=== PATIENT | female | born 1935 | race Caucasian/White ===

== ENCOUNTER 2020-01-24 13:11 | Outpatient (CLI) | payer MEDICARE, SELFPAY ==
--- NOTE | ~2020-01-24 | XR_ITS ---
EXAMINATION: XR lumbar spine 2-3V DATE: 01/24/2020 13:52 INDICATION: Lumbar spine fusion. TECHNIQUE: 3 views of lumbar spine were obtained. COMPARISON: Lumbar spine radiographs 06/26/2019, MRI 607/19 FINDINGS: There is 8 mm anterolisthesis of L4 on L5. Vertebral body heights are normal. There are zohreh nges of posterior fusion procedure at L4-L5 with pedicle screws. There is mildly decreased disc heigh t at L4-L5 and L5-S1. There are endplate osteophytes at all levels. There is severe facet joint osteo arthritis in lower lumbar spine. IMPRESSION: 1. Moderate lumbar spondylosis. 2. Posterior fusion procedure at L4-L5. Reviewed, dictated and finalized at location A.
== END 2020-01-24 13:12 | disposition home or self-care (01) ==
LOC: ANHIMG 13:19
PROVIDERS: PCP Family Medicine; Visit Provider Neurological Surgery
DX: Z09 Encounter for follow-up examination after completed treatment for conditions other than malignant neoplasm (principal); Z98.1 Arthrodesis status; M47.896 Other spondylosis, lumbar region
CPT/HCPCS: 72100

== ENCOUNTER → 2020-06-08 08:57 | Outpatient (CLI) | payer MEDICARE, SELFPAY ==
--- NOTE | ~2020-06-08 | XR_ITS ---
EXAMINATION: XR lumbar spine 2-3V EXAM DATE: 06/08/2020 09:17 INDICATION: Postoperative follow-up, surgery 06/02. TECHNIQUE: Lumber spine frontal, lateral, lateral L5-S1 projections for interpretation. Comparison is made to prior examination from 01/24/2020. FINDINGS: L4-5 lumbar fusion posteriorly in the grade 1 anterolisthesis position unchanged. Probable L4 laminectomies. There is moderate disc disease L4-5 and L5-S1, mild at the upper lumbar levels. Sa bishop, sacroiliac joints, sacral arcuate lines are intact. Paraspinal soft tissue is unremarkable. Ove rall moderate lumbar facet arthropathy. Difficult appreciate any significant change compared to prior study. IMPRESSION: 1. L4-5 posterior fusion. 2. Moderate spondylosis. Reviewed, dictated and finalized at location A.
== END ==
PROVIDERS: PCP Neurological Surgery; Visit Provider Neurological Surgery
DX: Z09 Encounter for follow-up examination after completed treatment for conditions other than malignant neoplasm (principal); Z98.1 Arthrodesis status; M47.816 Spondylosis without myelopathy or radiculopathy, lumbar region
CPT/HCPCS: 72100

== ENCOUNTER 2021-05-29 12:29 | Outpatient (CLI) | payer MEDICARE, SELFPAY ==
--- NOTE | ~2021-05-29 | XR_ITS ---
EXAMINATION: XR lumbar spine 2-3V DATE: 05/29/2021 13:10 INDICATION: Lumbar spine fusion. TECHNIQUE: 3 views of lumbar spine were obtained. COMPARISON: Lumbar spine radiographs 06/08/2020, MRI 01/19/2019 FINDINGS: There is 3 mm retrolisthesis of L3 on L4 and 9 mm anterolisthesis of L4 on L5. There are ch anges of posterior fusion procedure at L4-L5 with pedicle screws. Vertebral body heights are normal. There is mildly decreased disc height at L3-L4 and L4-L5 and moderately decreased disc height at L5-S 1. There is severe facet joint osteoarthritis bilaterally from L3-L4 through L5-S1. IMPRESSION: 1. Moderate lumbar spondylosis. 2. Posterior fusion procedure at L4-L5. Reviewed, dictated and finalized at location A.
== END 2021-05-29 12:30 | disposition home or self-care (01) ==
LOC: ANHIMG 12:38
PROVIDERS: PCP Family Medicine; Visit Provider Neurological Surgery
DX: Z09 Encounter for follow-up examination after completed treatment for conditions other than malignant neoplasm (principal); M47.896 Other spondylosis, lumbar region; Z98.1 Arthrodesis status
CPT/HCPCS: 72100

== ENCOUNTER 2021-12-12 07:29 | Outpatient (CLI) | payer MEDICARE, SELFPAY ==
--- NOTE | ~2021-12-12 | MR_ITS ---
EXAMINATION: MR lumbar spine wo con DATE: 12/12/2021 08:48 INDICATION: Other intervertebral disc degeneration, lumbar region. Low back pain. Right leg and butto ck numbness. TECHNIQUE: Magnetic resonance imaging (MRI) of the lumbar spine was performed without intravenous con trast. Sequences included sagittal T2-weighted FSE, sagittal T2-weighted FS FSE, sagittal T1-weighted FSE, and axial T2-weighted FSE. COMPARISON: Lumbar spine MRI 01/19/2019 FINDINGS: There is 3 mm anterolisthesis of L3 on L4 and 9 mm anterolisthesis of L4 on L5. Vertebral b marisol heights are normal. There is moderately decreased disc height at L4-L5 and mildly decreased disc height at L5-S1. There are changes of posterior fusion procedure at L4-L5 with pedicle screws. The di stal spinal cord signal intensity is normal. The conus medullaris is at T12-L1. The following disc le vels are specifically discussed: L1-L2: The disc is bulging. There is mild bilateral facet joint osteoarthritis. There is mild right a nd moderate left neural foraminal stenosis. There is mild central canal stenosis. L2-L3: The disc is bulging and has an annular fissure. There is mild bilateral facet joint osteoarthr itis. There is moderate bilateral neural foraminal stenosis. There is mild central canal stenosis. L3-L4: The disc is bulging and has an annular fissure. There is severe bilateral facet joint osteoart hritis. There is hypertrophy of the ligamentum flavum. There is moderate right and severe left neural foraminal stenosis. There is severe central canal stenosis. L4-L5: The disc is bulging and has an annular fissure. There is ankylosis of the facet joints with mo derate hypertrophy. There is moderate bilateral neural foraminal stenosis. There is mild central lakisha l stenosis. There is posterior decompression. L5-S1: The disc is bulging. There is severe bilateral facet joint osteoarthritis. There is moderate b ilateral neural foraminal stenosis. There is mild central canal stenosis. IMPRESSION: 1. Severe lumbar spondylosis with worsening at L3-L4. 2. Posterior fusion procedure at L4-L5. Reviewed, dictated and finalized at location B.
--- NOTE | ~2021-12-12 | MR_ITS ---
EXAMINATION: MR thoracic spine wo con DATE: 12/12/2021 08:48 INDICATION: Other intervertebral disc degeneration. Back pain. Right buttock and leg numbness. TECHNIQUE: Magnetic resonance imaging (MRI) of the thoracic spine was performed without intravenous c ontrast. Sagittal localizer T1-weighted FSE of the cervical spine was obtained. Thoracic spine sequen eric included sagittal T2-weighted FSE, sagittal T1-weighted FSE, sagittal T2-weighted FS FSE, and axi al T2-weighted FSE. COMPARISON: None FINDINGS: Bone alignment is normal. There is a hemangioma in T10 vertebral body. There is mild chroni c anterior wedging of T6 vertebral body. There are Schmorl's nodes from T6-T7 through T11-T12. There is mildly decreased disc height at T4-T5, moderately decreased disc height at T5-T6 and T6-T7, and mi ldly decreased disc height from T7-T8 through T11-T12. At T6-T7, the disc is bulging with mild centra l canal stenosis and ventral indentation of spinal cord. At T7-T8, there is a central extrusion with mild central canal stenosis and ventral indentation of the spinal cord. At T9-T10, there is a left ce ntral extrusion with mild central canal stenosis. At T10-T11, the disc is bulging with mild central c anal stenosis. At T11-T12, there is a central extrusion with mild central canal stenosis. There is mu ltilevel mild to moderate facet joint osteoarthritis. On the right, there is mild neural foraminal st enosis at T3-T4 and T4-T5. On the left, there is mild neural foraminal stenosis at T3-T4. There is pu nctate increased T2-weighted signal intensity in the spinal cord on the right at T7-T8. IMPRESSION: 1. Punctate abnormal signal in the spinal cord at T7-T8, which may be myelomalacia or artifact. 2. Moderate thoracic spondylosis. Reviewed, dictated and finalized at location B. IMPRESSION: 1. Punctate abnormal signal in the spinal cord at T7-T8, which may be myelomala narinder or artifact. 2. Moderate thoracic spondylosis.
== END 2021-12-12 07:30 | disposition home or self-care (01) ==
LOC: ANHIMG 07:36
PROVIDERS: PCP Family Medicine; Visit Provider Physician Assistant Medical
DX: M51.36 Other intervertebral disc degeneration, lumbar region (principal); Z98.890 Other specified postprocedural states; Z87.39 Personal history of other diseases of the musculoskeletal system and connective tissue; G60.9 Hereditary and idiopathic neuropathy, unspecified; M47.894 Other spondylosis, thoracic region; M47.896 Other spondylosis, lumbar region; Z98.1 Arthrodesis status
CPT/HCPCS: 72146; 72148

== ENCOUNTER 2022-06-25 00:06 | Day surgery (SDC) | payer MEDICARE, SELFPAY ==
[2022-05-05 13:49] VITALS: BMI 37.0
[2022-06-16 15:08] VITALS: BMI 37.0
[2022-06-25 09:15] VITALS: BP 131/56; PULSE 75; RESP 20; TEMP 37; O2SAT 100; BMI 35.1
[2022-06-25] MEDS: LACTATED RINGERS 1,000 ML 150 ML IV CONT (09:43)
--- NOTE | 2022-06-25 09:45 | WPDANESEPPF ---
Anes - Initial Pre Proc Eval Procedure: Operation Date: 06/25/22 10:30 Proposed Procedures p Screening Colonoscopy - Aneudy Sim MD Date/Time: 06/25/22 09:45 Surgeon: Aneudy Sim MD Pre Op Diagnosis: hx of colon polyps Patient Data Age: 86 Gender: F Height: 1.52 m Weight: 81.5 kg Last Vital Signs Temp 37.0 C 06/25/22 09:15 Pulse 75 06/25/22 09:15 Resp 20 06/25/22 09:15 BP 131/56 L 06/25/22 09:15 Pulse Ox 100 06/25/22 09:15 O2 Del Method Room Air 06/25/22 09:15 Allergies Allergy/AdvReac Type Severity Reaction Status Date / Time Cephalosporins Allergy Unknown Unknown Verified 06/16/22 15:12 Home Medications Medication Instructions Recorded Confirmed Type simvastatin 20 mg tablet 20 mg PO QPM #90 tabs 10/05/21 05/05/22 Rx indapamide 2.5 mg tablet 2.5 mg PO QAM #90 tabs 02/24/22 05/05/22 Rx sodium,potassium,mag sulfates 17.5 See Rx Instructions PO .COMPLEX 04/22/22 05/05/22 Rx gram-3.13 gram-1.6 gram oral soln #354 mL (Suprep Bowel Prep Kit) lisinopril 40 mg tablet 40 mg PO DAILY #90 tabs 05/25/22 06/16/22 Rx amlodipine 5 mg tablet 5 mg PO DAILY 06/16/22 06/16/22 History gabapentin 100 mg capsule 100 mg PO TID 06/16/22 06/16/22 History meloxicam 15 mg tablet 15 mg PO DAILY 06/16/22 06/16/22 History Patient hx anesthesia problems: none Family hx anesthesia problems: none Results Review: All pre-operative results and documents have been reviewed as part of the pre-operative evaluation. [facility] Past Medical History Medical History Aortic stenosis Bilateral lower extremity edema Colon polyp Eczematous dermatitis Exertional dyspnea Heart murmur History of B-cell lymphoma History of spinal stenosis Hyperlipidemia Lumbar degenerative disc disease Lymphoma, non-Hodgkin's Morbid obesity with BMI of 40.0-44.9, adult Onychomycosis Osteoarthritis Peripheral neuropathy Peripheral vascular disease Primary hypertension Pulmonary hypertension Stasis dermatitis of both legs Tinea corporis Urinary symptom or sign Wellness examination Surgical History Surgical History History of back surgery History of hernia surgery History of lumbosacral spine surgery Family History Family History Sibling Family history of malignant neoplasm of uterus Social History Social History Smoking status: Never smoker Second hand tobacco smoke exposure: No Smoking end date: 08/15/1968 Alcohol intake: current Alcohol use details: rare Substance use: never Substance use type: does not use Living arrangements: alone Gender identity (if verbalized by the patient): Female Spiritual care concerns: No Agree to blood products: Yes Anes - Eval Final PreProcedure Day of Procedure 06/25/22 09:45 Patient weight: obese Heart: regular rate and rhythm Lungs: clear to auscultation Airway: Mallampati scale class II Neurological: alert and oriented Last oral intake: >/= 8 hours ASA classification: III Emergent: no Anesthetic plan: proceed Anesthesia type and monitoring: general GIVS and standard monitoring Results Review: All pre-operative results and documents have been reviewed as part of the pre-operative evaluation. Informed Consent: The patient's anesthetic plan and its attendant risks and benefits were discussed with the patient/family/POA. Questions were solicited and answers provided to the satisfaction of the patient/family/POA.
--- NOTE | 2022-06-25 10:01 | PM.HPGS ---
History of Present Illness History of Present Illness Consent: Risks, benefits, and alternatives have been discussed and questions answered. Patient agrees to proceed with procedure. Chief complaint: hx of colon polyps Narrative: Azul Lomeli is a 86 year old female Presents for screening colonoscopy. Patient reports that she occasionally has anal leakage and a tendency towards constipation. She denies any blood in her stools. She has had no weight loss. She does have back issues and is anticipating back surgery. She patient presents today for screening colonoscopy. She has a prior history of colon polyps has been 5 years since last exam. Review of Systems Review of Systems: Review of systems noncontributory. [facility] Past Medical History Medical History Aortic stenosis Bilateral lower extremity edema Colon polyp Eczematous dermatitis Exertional dyspnea Heart murmur History of B-cell lymphoma History of spinal stenosis Hyperlipidemia Lumbar degenerative disc disease Lymphoma, non-Hodgkin's Morbid obesity with BMI of 40.0-44.9, adult Onychomycosis Osteoarthritis Peripheral neuropathy Peripheral vascular disease Primary hypertension Pulmonary hypertension Stasis dermatitis of both legs Tinea corporis Urinary symptom or sign Wellness examination Surgical History Surgical History History of back surgery History of hernia surgery History of lumbosacral spine surgery Family History Family History Sibling Family history of malignant neoplasm of uterus Social History Social History Smoking status: Never smoker Second hand tobacco smoke exposure: No Smoking end date: 08/15/1968 Alcohol intake: current Alcohol use details: rare Substance use: never Substance use type: does not use Living arrangements: alone Gender identity (if verbalized by the patient): Female Spiritual care concerns: No Agree to blood products: Yes Meds Home Medications and Allergies Home Medications Medication Instructions Recorded Confirmed Type simvastatin 20 mg tablet 20 mg PO QPM #90 tabs 10/05/21 05/05/22 Rx indapamide 2.5 mg tablet 2.5 mg PO QAM #90 tabs 02/24/22 05/05/22 Rx sodium,potassium,mag sulfates 17.5 See Rx Instructions PO .COMPLEX 04/22/22 05/05/22 Rx gram-3.13 gram-1.6 gram oral soln #354 mL (Suprep Bowel Prep Kit) lisinopril 40 mg tablet 40 mg PO DAILY #90 tabs 05/25/22 06/16/22 Rx amlodipine 5 mg tablet 5 mg PO DAILY 06/16/22 06/16/22 History gabapentin 100 mg capsule 100 mg PO TID 06/16/22 06/16/22 History meloxicam 15 mg tablet 15 mg PO DAILY 06/16/22 06/16/22 History Allergies Allergy/AdvReac Type Severity Reaction Status Date / Time Cephalosporins Allergy Unknown Unknown Verified 06/16/22 15:12 Vital Signs Vital Signs - 24 hr 06/25/22 09:15 Temperature 98.6 F Pulse Rate 75 Respiratory Rate 20 Blood Pressure 131/56 L Pulse Oximetry 100 Oxygen Delivery Room Air Exam Narrative: Physical exam reveals patient to be alert. Vital signs stable. HEENT exam is unremarkable. Patient is anicteric. Lungs are clear to auscultation and percussion. Heart is without murmur or extra sounds. Abdomen bowel sounds are present soft nontender with no organomegaly. Digital external rectal exam is normal. Assessment and Plan Assessment and plan (1) History of colon polyps: Code(s): Z86.010 - Personal history of colonic polyps Status: Acute Assessment and Plan: Patient has a prior history of colon polyps 5 years ago most recent exam. Plan for screening colonoscopy now. (2) Change in bowel habit: Code(s): R19.4 - Change in bowel habit Status: Acute Assessment and Plan: Patient reports anal leakage in a change in he
[2022-06-25 10:29] VITALS: BP 107/49; PULSE 69; RESP 18; O2SAT 99
[2022-06-25 10:39] VITALS: BP 116/48; PULSE 69; RESP 22; O2SAT 99
[2022-06-25 10:49] VITALS: BP 132/53; PULSE 69; RESP 20; O2SAT 96
== END 2022-06-25 11:07 | disposition home or self-care (01) ==
PROVIDERS: PCP Family Medicine; Visit Provider Internal Medicine Gastroenterology
PROC: 0DJD8ZZ Inspection of Lower Intestinal Tract, Via Natural or Artificial Opening Endoscopic (ICD-10-PCS; CPT 45378; principal; 2022-06-25 10:30)
DX: Z12.11 Encounter for screening for malignant neoplasm of colon (principal); K51.40 Inflammatory polyps of colon without complications; K64.8 Other hemorrhoids; K57.30 Diverticulosis of large intestine without perforation or abscess without bleeding; K52.9 Noninfective gastroenteritis and colitis, unspecified; E78.5 Hyperlipidemia, unspecified; I10 Essential (primary) hypertension; G62.9 Polyneuropathy, unspecified; I73.9 Peripheral vascular disease, unspecified; I27.20 Pulmonary hypertension, unspecified; Z85.72 Personal history of non-Hodgkin lymphomas; E66.9 Obesity, unspecified; Z68.35 Body mass index [BMI] 35.0-35.9, adult
CPT/HCPCS: 45380; 45385; 88305; J2704; J7120

== ENCOUNTER 2022-11-13 09:01 | Emergency (ER) | payer MEDICARE, MEDICAID, SELFPAY ==
[2022-11-13 09:32] VITALS: BP 116/64; PULSE 116; RESP 16; TEMP 36.7; O2SAT 97
--- NOTE | 2022-11-13 09:46 | ED.URI ---
HPI - URI/Sore Throat General Chief Complaint: Upper Respiratory Infection Stated Complaint: cough,congestion Time Seen by Provider: 11/13/22 09:40 Source: patient Mode of arrival: ambulatory Limitations: no limitations History of Present Illness HPI Narrative: Azul is an 87-year-old female patient presenting to the clinic today with complaints cough and congestion x1 week. She reports she is blowing out green nasal drainage as well as coughing up green phlegm. States she has had a low-grade temperature of a 100? F. Does report some sinus pressure as well. MD elicited complaint: fever, cough, nasal congestion and sinus pain Related Data Home Medications Medication Instructions Recorded Confirmed amlodipine 5 mg tablet 5 mg PO DAILY 06/16/22 08/04/22 Allergies Allergy/AdvReac Type Severity Reaction Status Date / Time Cephalosporins Allergy Unknown Unknown Verified 08/04/22 14:15 Review of Systems Review of Systems: Pertinent positives per HPI. Patient denies any rash, headache, visual changes, dizziness, shortness of breath, chest pain, palpitations, nausea, vomiting, diarrhea, constipation, abdominal pain, or any urinary issues. [facility] Past Medical History Medical History Aortic stenosis Bilateral lower extremity edema Colon polyp Eczematous dermatitis Exertional dyspnea Heart murmur History of B-cell lymphoma History of spinal stenosis Hyperlipidemia Lumbar degenerative disc disease Lymphoma, non-Hodgkin's Morbid obesity with BMI of 40.0-44.9, adult Onychomycosis Osteoarthritis Peripheral neuropathy Peripheral vascular disease Primary hypertension Pulmonary hypertension Stasis dermatitis of both legs Tinea corporis Urinary symptom or sign Wellness examination Surgical History Surgical History History of back surgery History of hernia surgery History of lumbosacral spine surgery Family History Family History Sibling Family history of malignant neoplasm of uterus Social History Social History Smoking status: Never smoker Second hand tobacco smoke exposure: No Smoking end date: 08/15/1968 Alcohol intake: current Alcohol use details: rare Substance use: never Substance use type: does not use Living arrangements: alone Occupation/Education: occupation Gender identity (if verbalized by the patient): Female Spiritual care concerns: No Agree to blood products: Yes Comments At the time of my signature, I reviewed and agree with the nursing past medical, surgical, social, and family history. There is no relevant family history pertinent to the patient complaint. Exam Narrative: General: Well-developed, well nourished, in no apparent distress Head: Normocephalic, atraumatic Eyes: Pupils equally round and reactive to light bilaterally, EOM intact, sclera and conjunctive clear, no discharge, lids normal Ears: TMs intact and clear, ear canals clear, no drainage, grossly hearing normal. Nose: Nares patent, green nasal discharge, moderate to severe inflammation with white striae, maxillary sinus tenderness. Mouth: Oral pharynx without lesions or masses, good dentition, MMM. Postnasal drip Neck: Supple, trachea midline, no enlargement of anterior or posterior cervical nodes, no thyroid masses or goiter palpable. Cardio: Regular rate and rhythm, s1 and s2 normal, no murmur appreciated. Resp: Clear to auscultation bilaterally, no rhonchi, rales, wheezing or rubs Course Course Emergency Course: Portions of this record may have been created with voice recognition software. Level of Care: Express Care Visit Vital Signs Vital signs: Vital Signs Temperature 36.7 C 11/13/22 09:32 Pulse Rate 116 H 11/13/22 09:32 Respiratory Rat
== END 2022-11-13 09:53 | disposition home or self-care (01) ==
PROVIDERS: Emergency Provider Nurse Practitioner Family; PCP Family Medicine
DX: J01.90 Acute sinusitis, unspecified (principal); B96.89 Other specified bacterial agents as the cause of diseases classified elsewhere; E78.5 Hyperlipidemia, unspecified; I10 Essential (primary) hypertension
CPT/HCPCS: 99213; G0463

== ENCOUNTER 2023-07-01 08:23 | Outpatient (CLI) | payer MEDICARE, SELFPAY ==
--- NOTE | 2023-07-01 08:38 | ECHO_ITS ---
Patient Info Name: Azul Lomeli Age: 87 years : 1935 Gender: Female Ht: 60 in Wt: 170 lbs BSA: 1.84 m2 HR: 88 bpm BP: 161 / 77 mmHg Technical Quality: Fair Exam Date: 07/01/2023 8:41 AM Exam Location: Echo Lab Patient Status: Outpatient Admit Date: 07/01/2023 Staff Ordering Physician: Joann Nieves PA-C Flying Teacher: Naomy Webster RDCS Attending Provider: Joann Nieves PA-C Referring Physician: Lizbeth BAUM; Exam Type: CA echo doppler color flow Study Info Indications R06.00 - Dyspnea, unspecified Complete two-dimensional, color flow and Doppler transthoracic echocardiogram is performed. Summary 1. Complete two-dimensional, color flow and Doppler transthoracic echocardiogram is performed. 2. Left ventricular chamber dimension is normal. 3. Left ventricular systolic function is normal, estimated at 55-60%. 4. There is mild concentric increased left ventricular wall thickness. 5. The left ventricular diastolic function is grade I diastolic dysfunction. 6. E/e' 11 is mildly elevated. 7. Left atrial chamber dimension is mildly enlarged. 8. Right atrial chamber dimension is mildly enlarged. 9. There is moderate aortic valve sclerosis. 10. There is mild aortic valve stenosis with a peak velocity of 234 cm/s, mean gradient of 11 mmHg, and aortic valve area of 2.0 cm2. 11. There is trace aortic valve regurgitation. 12. The mitral valve has moderately calcified annulus. 13. There is mild mitral valve regurgitation. 14. There is mild tricuspid valve regurgitation. 15. No pulmonary hypertension, estimated pulmonary arterial systolic pressure is 39 mmHg. Left Ventricle E/e' 11 is mildly elevated. Left ventricular chamber dimension is normal. Left ventricular systolic function is normal, estimated at 55-60%. There is mild concentric increased left ventricular wall thickness. The left ventricular diastolic function is grade I diastolic dysfunction. Right Ventricle Right ventricular systolic function is normal and with normal TAPSE 3.7 cm. Right ventricular chamber dimension is normal. Left Atria Left atrial chamber dimension is mildly enlarged. Right Atria Right atrial chamber dimension is mildly enlarged. Aortic Valve The aortic valve is trileaflet. There is moderate aortic valve sclerosis. There is mild aortic valve stenosis with a peak velocity of 234 cm/s, mean gradient of 11 mmHg, and aortic valve area of 2.0 cm2. There is trace aortic valve regurgitation. Pulmonic Valve There is no pulmonic regurgitation. Mitral Valve The mitral valve has moderately calcified annulus. There is no mitral valve stenosis. There is mild mitral valve regurgitation. Tricuspid Valve There is mild tricuspid valve regurgitation. No pulmonary hypertension, estimated pulmonary arterial systolic pressure is 39 mmHg. Pericardium/Pleural There is no pericardial effusion. Inferior Vena Cava Normal inferior vena cava with >50% collapse upon inspiration consistent with normal right atrial pressure, 5 mmHg. Aorta The aortic root size at the sinus of Valsalva is normal. Left Ventricular Outflow Tract Name Value Normal LVOT 2D LVOT Diameter 1.9 cm LVOT Doppler LVOT Peak Gradient 8 mmHg
--- NOTE | 2023-07-01 08:40 | ECG_ITS ---
Measurements Intervals Logan Rate: 68 P: 56 ID: [id number] QRS: 3 QRSD: 82 T: 15 QT: 378 QTc: 403 Interpretive Statements SINUS RHYTHM WITH SINUS ARRHYTHMIA ATRIAL PREMATURE COMPLEXES LOW QRS VOLTAGE IN PRECORDIAL LEADS BASELINE ARTIFACT- I, II, III, AVR, AVL, AVF, V1, V5 BORDERLINE ECG NO PREVIOUS ECG AVAILABLE FOR COMPARISON Electronically Signed On 07-01-2023 9:06:15 CLIENT SUPPORT COORDINATOR by Konrad Heard D.O.
== END 2023-07-01 08:24 | disposition home or self-care (01) ==
LOC: ANHCARD 08:24
PROVIDERS: PCP Family Medicine; Visit Provider Physician Assistant Medical
DX: I27.20 Pulmonary hypertension, unspecified (principal); R06.00 Dyspnea, unspecified; R01.1 Cardiac murmur, unspecified; R60.0 Localized edema; R94.31 Abnormal electrocardiogram [ECG] [EKG]
CPT/HCPCS: 93005; 93306

== ENCOUNTER 2023-07-19 09:55 | Outpatient (CLI) | payer MEDICARE, SELFPAY ==
--- NOTE | 2023-07-19 | EST_ITS ---
Patient Info Name: Azul Lomeli Age: 87 years : 1935 Gender: Female Ht: 60 in Wt: 170 lbs BSA: 1.84 m2 HR: 124 bpm BP: 120 / 72 mmHg Heart Rhythm: Atrial Flutter Exam Date: 07/19/2023 11:09 AM Exam Location: Echo Lab Patient Status: Outpatient Admit Date: 07/19/2023 Staff Ordering Physician: Joann Nieves PA-C Attending Provider: Joann Nieves PA-C Exercise Technologist: Paris Bassett CT Exercise Physician: Konrad Heard DO Exam Type: CA stress denice w NM Study Info Indications R06.09 - Other forms of dyspnea A regadenoson stress test was performed. Summary 1. 1. Negative lexiscan stress test for ischemic ST changes by ECG criteria. 2. 2. Baseline atrial flutter/tachycardia with rapid ventricular response. 3. 3. Nuclear scan to follow and will be reported separately. Please correlate with it. 4. 4. Patient informed of the above results. Protocol: Lexiscan Stress ECG Details Stage: REST Duration (min): 1 min : 1 sec HR (bpm): 120 SBP (mmHg): 120 DBP (mmHg): 72 Stage: REST Duration (min): 11 min : 41 sec HR (bpm): 126 SBP (mmHg): 120 DBP (mmHg): 72 Stage: REST Duration (min): 13 min : 8 sec HR (bpm): 125 SBP (mmHg): 120 DBP (mmHg): 72 Stage: STAGE 1 Duration (min): 1 min : 0 sec HR (bpm): 123 SBP (mmHg): 134 DBP (mmHg): 78 Stage: RECOVERY Duration (min): 1 min : 0 sec HR (bpm): 124 SBP (mmHg): 134 DBP (mmHg): 78 Stage: RECOVERY Duration (min): 2 min : 0 sec HR (bpm): 123 SBP (mmHg): 134 DBP (mmHg): 78 Stage: RECOVERY Duration (min): 3 min : 0 sec HR (bpm): 123 SBP (mmHg): 115 DBP (mmHg): 69 Stage: RECOVERY Duration (min): 3 min : 0 sec HR (bpm): 123 SBP (mmHg): 115 DBP (mmHg): 69 Rest HR: 125 bpm Peak HR: 133 bpm Rest Sys BP: 120 mmHg Peak Sys BP: 134 mmHg Max Pred HR: 135 bpm % Max Pred HR: 99 % Target HR: 115 bpm Max RPP: 17,822 bpm*mmHg Termination Reason: Completed protocol Cardiac Symptoms: Shortness of breath Total Time: 1 min : 0 sec Rest Pollard BP: 72 mmHg Peak Pollard BP: 78 mmHg Total Dose: 0.4 mg Resting ECG Atrial flutter/tachycardia with rapid ventricular response. Stress ECG No ST changes. Arrhythmias No other arrhythmias. Report Signatures
--- NOTE | ~2023-07-19 | NM_ITS ---
EXAMINATION: NM denice stress w perfusion DATE: 07/19/2023 12:23 INDICATION: Dyspnea TECHNIQUE: Rest images were obtained following intravenous administration of 9.1 mCi Tc99m tetrofosmi n (Myoview). The patient was infused intravenously with Lexiscan (Regadenoson). Then, 28.5 mCi Tc99m tetrofosmin (Myoview) was administered intravenously, and stress images were obtained. Data was recon structed into short axis and horizontal and vertical long axis SPECT images. Gated SPECT images were also obtained. COMPARISON: None. FINDINGS: There is no definite reversible or fixed perfusion abnormality to suggest ischemia or infar ction. There is normal left ventricular chamber size, wall motion and ejection fraction. Left ventr icular ejection fraction measures >70%. IMPRESSION: 1. Normal myocardial perfusion at rest and during stress. 2. Left ventricular ejection fraction measuring >70%. Reviewed, dictated and finalized at location A. [facility]
--- NOTE | ~2023-07-19 | XR_ITS ---
Clinical Indication: Dyspnea PA and lateral views of the chest: Comparison: None Findings: The lungs are clear, without evidence of focal consolidation or pleural effusion. Cardiome diastinal silhouette is within normal limits. Bones and soft tissues are unremarkable. Impression: Normal chest. Reviewed, dictated and finalized at location . D[employer]ITAL SALES Impression: Normal chest.
== END 2023-07-19 09:56 | disposition home or self-care (01) ==
PROVIDERS: PCP Family Medicine; Visit Provider Physician Assistant Medical
DX: R06.00 Dyspnea, unspecified (principal); R01.1 Cardiac murmur, unspecified
CPT/HCPCS: 71046; 78452; 93017; A9502; J2785

== ENCOUNTER → 2023-08-31 14:36 | Outpatient (CLI) | payer MEDICARE, MEDICAID, SELFPAY ==
--- NOTE | ~2023-08-31 | MR_ITS ---
EXAMINATION: MR lumbar spine wo con DATE: 08/31/2023 15:08 INDICATION: Lumbar radicular pain. Low back pain. TECHNIQUE: Magnetic resonance imaging (MRI) of the lumbar spine was performed without intravenous con trast. COMPARISON: Lumbar spine MRI 12/12/2021 FINDINGS: There is 7 degrees levocurvature of thoracolumbar spine. There is 4 mm anterolisthesis of L 3 on L4 and 7 mm anterolisthesis of L4 on L5. There is mild chronic anterior wedging of T11 vertebral body. There is mildly decreased disc height at L1-L2, L2-L3, and L3-L4 and moderately decreased disc height at L4-L5 and L5-S1. There are changes of posterior fusion procedure at L4-L5 with pedicle scr ews. The distal spinal cord signal intensity is normal. The conus medullaris is at T12-L1. The follow ing disc levels are specifically discussed: L1-L2: The disc is bulging. There is mild right and moderate left facet joint osteoarthritis. There i s mild right and moderate left neural foraminal stenosis. There is mild central canal stenosis. L2-L3: The disc is bulging. There is mild bilateral facet joint osteoarthritis. There is mild right a nd moderate left neural foraminal stenosis. There is mild central canal stenosis. L3-L4: The disc is bulging and has an annular fissure. There is severe bilateral facet joint osteoart hritis. There is hypertrophy of the ligamentum flavum. There is moderate bilateral neural foraminal s tenosis. There is severe central canal stenosis. L4-L5: The disc does not extend beyond the endplate margins. There is moderate bilateral facet joint hypertrophy. There is mild bilateral neural foraminal stenosis. There is no central canal stenosis. T here is posterior decompression. L5-S1: The disc is bulging. There is severe bilateral facet joint osteoarthritis. There is moderate b ilateral neural foraminal stenosis. There is mild central canal stenosis. IMPRESSION: 1. Severe lumbar spondylosis, stable from 12/12/2021. 2. Posterior fusion procedure at L4-L5. Reviewed, dictated and finalized at location E. S ORDER CLERK
== END ==
PROVIDERS: PCP Nurse Practitioner Family; Visit Provider Nurse Practitioner Family
DX: M47.26 Other spondylosis with radiculopathy, lumbar region (principal); Z98.1 Arthrodesis status
CPT/HCPCS: 72148

== ENCOUNTER 2024-06-16 08:48 | Outpatient (CLI) | payer MEDICARE, SELFPAY ==
--- NOTE | ~2024-06-16 | XR_ITS ---
XR chest 2V DATE: 06/16/2024 09:06 INDICATION: Shortness of breath for 2 months TECHNIQUE: PA and lateral views COMPARISON: 07/19/2023 PA and lateral chest FINDINGS: Mild cardiomegaly. Calcification of the aortic arch and descending thoracic and abdominal a eliecer. No hilar or mediastinal enlargement. No pulmonary infiltrate or consolidation, pleural effusion or pulmonary vascular congestion or pneumo thorax is detected. Status post posterior lumbar surgical fusion. Osteopenia. Degenerative spurring of the thoracic and lumbar spine. IMPRESSION: Mild cardiomegaly Aortic atherosclerosis No active pulmonary disease Osteopenia Status post posterior lumbar spine surgical fusion Reviewed, dictated and finalized at location A.
== END 2024-06-16 08:49 | disposition home or self-care (01) ==
PROVIDERS: PCP Family Medicine; Visit Provider Student in an Organized Health Care Education/Training Program
DX: I51.7 Cardiomegaly (principal); I70.0 Atherosclerosis of aorta; M85.80 Other specified disorders of bone density and structure, unspecified site; Z98.1 Arthrodesis status; R06.02 Shortness of breath
CPT/HCPCS: 71046

== ENCOUNTER 2024-06-27 15:07 | Outpatient (CLI) | payer MEDICARE, SELFPAY ==
--- NOTE | ~2024-06-27 | US_ITS ---
EXAMINATION: US venous doppler [facility] DATE: 06/27/2024 15:46 INDICATION: Edema TECHNIQUE: Grayscale ultrasound images without and with compression and Doppler ultrasound images of the bilateral lower extremity veins were obtained. COMPARISON: 06/28/2016 FINDINGS: The visualized portions of right common femoral vein, profunda (deep) femoral vein, femoral vein, pop liteal vein, peroneal veins, posterior tibial veins, and greater saphenous vein outflow are patent. The visualized portions of left common femoral vein, profunda femoral vein, femoral vein, popliteal v ein, peroneal veins, posterior tibial veins, and greater saphenous vein outflow are patent. IMPRESSION: 1. No deep venous thrombosis within the bilateral lower extremities, as detailed above. Reviewed, dictated and finalized at location A. T DESK ATTENDANT IMPRESSION: 1. No deep venous thrombosis within the bilateral lower extremities, as detail ed above.
== END 2024-06-27 15:08 | disposition home or self-care (01) ==
LOC: ANHIMG 15:09
PROVIDERS: PCP Family Medicine; Visit Provider Student in an Organized Health Care Education/Training Program
DX: R60.0 Localized edema (principal)
CPT/HCPCS: 93970

== ENCOUNTER 2024-08-27 10:25 | Outpatient (CLI) | payer MEDICARE, SELFPAY ==
--- NOTE | ~2024-08-27 | US_ITS ---
EXAMINATION: US arterial ankle brachial ind DATE: 08/27/2024 11:57 INDICATION: Peripheral vascular disease TECHNIQUE: Segmental pressures and plethysmographic and Doppler waveforms of the brachial and lower e xtremity arteries were obtained. COMPARISON: None. FINDINGS: Right and left brachial artery pressures of 166 mm Hg and 152 mm Hg, respectively, are concordant (no rmal difference <= 30 mmHg). The right ankle-brachial index (BRIT) is 1.02 (normal >= 0.9-1.0). The right great toe-brachial index (TBI) is 0.45 (normal >= 0.65). Arterial Doppler waveforms demonstrate brisk systolic upstrokes at laurita th right posterior tibial and dorsalis pedis arteries. The left BRIT is 1.01. The left TBI is 0.46. Arterial Doppler waveforms demonstrate brisk systolic ups trokes at both left posterior tibial and dorsalis pedis arteries. IMPRESSION: 1. Mild arterial occlusive disease to bilateral lower limbs with normal bilateral ABIs but mildly dec reased bilateral TBIs. Reviewed, dictated and finalized at location B. ING MACHINE OPERATOR IMPRESSION: 1. Mild arterial occlusive disease to bilateral lower limbs with normal bilater al ABIs but mildly decreased bilateral TBIs.
== END 2024-08-27 10:26 | disposition home or self-care (01) ==
PROVIDERS: PCP Family Medicine; Visit Provider Podiatrist Foot & Ankle Surgery
DX: I73.9 Peripheral vascular disease, unspecified (principal)
CPT/HCPCS: 93922

== ENCOUNTER 2024-12-05 10:36 | Emergency (ER) | payer MEDICARE, SELFPAY ==
--- NOTE | 2024-12-05 10:37 | ED_ITS ---
HPI - URI/Sore Throat General Chief Complaint: Upper Respiratory Infection Stated Complaint: SORE THROAT Time Seen by Provider: 12/05/24 10:37 Source: patient Mode of arrival: ambulatory Limitations: no limitations History of Present Illness HPI Narrative: Azul is an 89-year-old female patient presenting to the clinic today with complaints sore throat times 2-3 days. She reports she did have a very low- grade temperature of 99.1?. Has constant nasal drainage year around. She denies any sinus pressure headache. No chest pain or shortness of breath. States she is also having some pain in her mouth as well. Denies any changes in her medications or any recent antibiotics. MD elicited complaint: sore throat and nasal congestion Related Data Allergies Allergy/AdvReac Type Severity Reaction Status Date / Time Cephalosporins Allergy Unknown Unknown Verified 12/05/24 10:49 Review of Systems Review of Systems: Pertinent positives per HPI. Patient denies any fever, chills, rash, headache, visual changes, dizziness, cough, shortness of breath, chest pain, palpitations, nausea, vomiting, diarrhea, constipation, abdominal pain, or any urinary issues. FOR[facility]LY [facility] Past Medical History Medical History Colon polyp Wellness examination Urinary symptom or sign Peripheral vascular disease Pulmonary hypertension Aortic stenosis Hyperlipidemia Primary hypertension Heart murmur Exertional dyspnea History of B-cell lymphoma Eczematous dermatitis Lumbar degenerative disc disease Morbid obesity with BMI of 40.0-44.9, adult Osteoarthritis History of spinal stenosis Peripheral neuropathy Bilateral lower extremity edema Tinea corporis Stasis dermatitis of both legs Onychomycosis Lymphoma, non-Hodgkin's Surgical History Surgical History History of lumbosacral spine surgery History of hernia surgery History of back surgery Family History Family History Sibling Family history of malignant neoplasm of uterus Social History Social History Smoking status: Former smoker Second hand tobacco smoke exposure: No Smoking end date: 08/15/1968 Alcohol intake: current Alcohol use details: rare Substance use: never Substance use type: does not use Do You Feel Safe in your Home?: Yes Lack of Transportation: No Lack of Food: Never True Current Housing: I Have Housing Concerned About Future Housing: No Difficulty Paying Gas/Electric Bills: No Difficulty Paying for Meds: No Currently Unemployed: No Education: High School Diploma/GED Difficulty w/ Childcare or Family Care: No Living arrangements: alone Occupation/Education: occupation Gender identity (if verbalized by the patient): Female Spiritual care concerns: No Agree to blood products: Yes Comments At the time of my signature, I reviewed and agree with the nursing past medical, surgical, social, and family history. There is no relevant family history pertinent to the patient complaint. Exam Narrative: General: Well-developed, well nourished, in no apparent distress Head: Normocephalic, atraumatic Eyes: Pupils equally round and reactive to light bilaterally, EOM intact, sclera and conjunctive clear, no discharge, lids normal Ears: TMs intact and clear, ear canals clear, no drainage, grossly hearing nor mal. Nose: Nares patent, clear nasal discharge, no inflammation, no sinus tenderness. Mouth: Oral pharynx beefy red appearing throat with thrush on tongue and over the oral mucosa, good dentition, MMM. Neck: Supple, trachea midline, no enlargement of anterior or posterior cervical nodes, no thyroid masses or goiter palpable. Cardio: Regular rate and rhythm, s1 and s2 normal, no murmur appreciated. Resp: Clear to auscultation bilaterally, no rhonchi, rales, wheezing or rubs Course Course Emergency Course: Portions of this record may have been created with voice recognition software. Level of Care: Express Care Visit Vital Signs Vital signs: Vital Signs Temperature 36.5 C 12/05/24 10:52 Pulse Rate 54 L 12/05/24 10:52 Respiratory Rate 16 12/05/24 10:52 Blood Pressure 147/89 H 12/05/24 10:52 Pulse Oximetry 100 12/05/24 10:52 Temperature 36.5 C 12/05/24 10:52 Pulse Rate 54 L 12/05/24 10:52 Respiratory Rate 16 12/05/24 10:52 Blood Pressure 147/89 H 12/05/24 10:52 Pulse Oximetry 100 12/05/24 10:52 Vital signs reviewed MDM - URI/Sore Throat MDM Narrative Medical decision making narrative: At the time of visit patient is resting comfortably on the exam table. Patient appears to be nontoxic. Labs: Strep test was negative in the clinic today. We will send strep for culture plan Plan: I suspect patient has oral thrush. Prescription for nystatin swish and swallow was sent to the pharmacy. Supportive measures were discussed with the patient and they voiced understanding discharge instructions and agrees to treatment plan. Return precautions reviewed Differential Diagnosis Differential diagnosis: Likely upper respiratory infection, otitis media, sinusitis, viral infection, bronchitis, influenza, pharyngitis and other (COVID) Discharge Plan Discharge Clinical Impression: Oral thrush Patient Disposition: Home Condition: Stable Instructions: Antibiotic Form, Oral Candidiasis (ED) Additional Instructions: Strep test was negative in the clinic today. We will send strep for culture. I suspect you have an oral yeast infection. Take prescription medications only as prescribed-nystatin swish and swallow Increase fluids and stay well hydrated Tylenol/motrin for pain/fever Flonase and OTC antihistamines as directed for nasal congestion Vicks vapor rub to open sinuses Sinus rinses for congestion Cepacol spray, cough drops, throat lozenges, warm tea with honey/lemon, gargle salt water to soothe throat Go to the ED if you develop a worsening in your condition- high fever not controlled by Tylenol or Motrin, dehydration, weakness, lethargy, shortness of breath, or chest pain. Follow up with your PCP in 3-5 days if symptoms persist. Patient Language: Norwegian Prescriptions: New nystatin 100,000 unit/mL suspension 4 ml PO QID 14 Days Qty: 224 0RF Rx Instructions: swish and swallow No Action amlodipine 5 mg tablet 5 mg PO DAILY Qty: 90 2RF Rx Instructions: TAKE 1 TABLET(5 MG) BY MOUTH EVERY DAY indapamide 2.5 mg tablet 2.5 mg PO QAM Qty: 90 2RF Rx Instructions: take 1 tablet by oral route every day in the morning lisinopril 20 mg tablet See Rx Instructions .ROUTE .COMPLEX Qty: 30 5RF Dose Instruction: TAKE 1 TABLET BY MOUTH DAILY Rx Instructions: TAKE 1 TABLET BY MOUTH DAILY metoprolol tartrate 25 mg tablet 50 mg PO BID Qty: 180 1RF gabapentin 100 mg capsule See Rx Instructions .ROUTE .COMPLEX Qty: 120 3RF Rx Instructions: TAKE 1 CAPSULE(100 MG) BY MOUTH in the AM and 3 capsule (300mg) HS; TAKE 1 CAPSULE(100 MG) BY MOUTH in the AM and 3 capsule (300mg) HS simvastatin 20 mg tablet 20 mg PO QPM Qty: 90 3RF Rx Instructions: TAKE 1 TABLET BY ORAL ROUTE EVERY DAY IN THE EVENING Follow-up/Referrals: Vanna Puente MD [Primary Care Provider] - Time of Disposition: 10:56 Quality NIHSS Nursing Documentation ED NIHSS nursing documentation: reviewed/agree
[2024-12-05 10:52] VITALS: BP 147/89; PULSE 54; RESP 16; TEMP 36.5; O2SAT 100
[2024-12-05 10:58] LABS: EDSTREPNEGPOS1 Negative (Negative)
== END 2024-12-05 10:59 | disposition home or self-care (01) ==
PROVIDERS: Emergency Provider Nurse Practitioner Family; PCP Family Medicine
DX: B37.0 Candidal stomatitis (principal); I73.9 Peripheral vascular disease, unspecified; I27.20 Pulmonary hypertension, unspecified; I35.0 Nonrheumatic aortic (valve) stenosis; E78.5 Hyperlipidemia, unspecified; I10 Essential (primary) hypertension; R01.1 Cardiac murmur, unspecified; M51.369 Other intervertebral disc degeneration, lumbar region without mention of lumbar back pain or lower extremity pain; E66.01 Morbid (severe) obesity due to excess calories; Z68.33 Body mass index [BMI] 33.0-33.9, adult; M19.90 Unspecified osteoarthritis, unspecified site; G62.9 Polyneuropathy, unspecified; Z85.72 Personal history of non-Hodgkin lymphomas; Z87.891 Personal history of nicotine dependence
CPT/HCPCS: 87081; 87880; 99213; G0463

== ENCOUNTER 2024-12-19 14:39 | Emergency (ER) | payer MEDICARE, SELFPAY ==
--- NOTE | ~2024-12-19 | XR_ITS ---
CHEST RADIOGRAPH, PA AND LATERAL CLINICAL HISTORY: wheezing, cough for 2 weeks. . COMPARISON: 06/16/2024 TECHNIQUE: PA and lateral views of the chest. FINDINGS The cardiomediastinal silhouette is unremarkable. The lungs are clear. IMPRESSION: No focal infiltrate or effusion. Reviewed, dictated and finalized at location A.
[2024-12-19 14:48] VITALS: BP 180/60; PULSE 60; RESP 16; TEMP 36.6; O2SAT 99
--- NOTE | 2024-12-19 14:56 | ED.URI ---
HPI - URI/Sore Throat General Chief Complaint: Upper Respiratory Infection Stated Complaint: COUGH Source: patient Mode of arrival: ambulatory Limitations: no limitations History of Present Illness HPI Narrative: Patient is an 89-year-old female who presents to the clinic with cough, sore throat, congestion, and wheezing x 2 weeks. She states she was treated for oral thrush 2 weeks ago. Denies any shortness of breath or difficulty swallowing. Related Data Allergies Allergy/AdvReac Type Severity Reaction Status Date / Time Cephalosporins Allergy Unknown Unknown Verified 12/19/24 14:45 Review of Systems Review of Systems: CONSTITUTIONAL: Denies body aches, fever, chills, or sweats. EYES: Denies visual changes, redness, or discharge. ENT: Reports rhinorrhea, sore throat, or otalgia. Reports congestion and sore throat. CARDIOVASCULAR: Denies chest pain, palpitations, or edema. RESPIRATORY: Reports cough. Reports wheezing. GASTROINTESTINAL: Denies abdominal pain, nausea, vomiting, or diarrhea. GENITOURINARY: Denies dysuria or hematuria. SKIN: Denies rash, itching, or wounds. MUSCULOSKELETAL: Denies back pain, joint pain, or myalgia. NEUROLOGIC: Denies headache, numbness, tingling, or weakness. PSYCH: Denies depression or anxiety. All systems reviewed & are unremarkable except as noted in HPI and below PMFSH Past Medical History Medical History Colon polyp Wellness examination Urinary symptom or sign Peripheral vascular disease Pulmonary hypertension Aortic stenosis Hyperlipidemia Primary hypertension Heart murmur Exertional dyspnea History of B-cell lymphoma Eczematous dermatitis Lumbar degenerative disc disease Morbid obesity with BMI of 40.0-44.9, adult Osteoarthritis History of spinal stenosis Peripheral neuropathy Bilateral lower extremity edema Tinea corporis Stasis dermatitis of both legs Onychomycosis Lymphoma, non-Hodgkin's Surgical History Surgical History History of lumbosacral spine surgery History of hernia surgery History of back surgery Family History Family History Sibling Family history of malignant neoplasm of uterus Social History Social History (Reviewed 12/19/24 @ 15:25 by LINDA Turner Smoking status: Former smoker Second hand tobacco smoke exposure: No Smoking end date: 08/15/1968 Alcohol intake: current Alcohol use details: rare Substance use: never Substance use type: does not use Do You Feel Safe in your Home?: Yes Lack of Transportation: No Lack of Food: Never True Current Housing: I Have Housing Concerned About Future Housing: No Difficulty Paying Gas/Electric Bills: No Difficulty Paying for Meds: No Currently Unemployed: No Education: High School Diploma/GED Difficulty w/ Childcare or Family Care: No Living arrangements: alone Occupation/Education: occupation Gender identity (if verbalized by the patient): Female Spiritual care concerns: No Agree to blood products: Yes Comments At time of signature, I have reviewed and agree with nursing past medical, surgical, social and family history unless otherwise noted. Please see nursing chart for further information. There is no relevant family history pertinent to the presenting complaint. Exam Narrative: GENERAL: Well-appearing, well-nourished, and in no acute distress. EYES: EOMI. No redness or drainage. Conjunctivae normal. ENT: Mucous membranes pink and moist. Nares clear. No rhinorrhea. TMs fluid filled, but intact. Throat Erythematous without tonsillar exudate, uvula midline. Nasal congestion noted. NECK: Normal AROM. Supple. No lymphadenopathy. CHEST: No respiratory distress. Wheezing noted to auscultation. HEART: Regular rate and rhythm. No murmur appreciated. Normal peripheral pulses. ABDOMEN: Soft, nontender, nondistended, normal active bowel sounds. SKIN: Warm, dry, no rash. Capillary refill normal. Normal skin turgor. NEURO: No focal deficits. Alert and oriented x3. Gait steady. PSYCH: Normal affect. No signs of depression or anxiety. Course Course Level of Care: Express Care Visit Vital Signs Vital signs: Vital Signs Temperature 97.9 F 12/19/24 14:48 Pulse Rate 60 12/19/24 14:48 Respiratory Rate 16 12/19/24 14:48 Blood Pressure 180/60 H 12/19/24 14:48 Pulse Oximetry 99 12/19/24 14:48 Temperature 97.9 F 12/19/24 14:48 Pulse Rate 60 12/19/24 14:48 Respiratory Rate 16 12/19/24 14:48 Blood Pressure 180/60 H 12/19/24 14:48 Pulse Oximetry 99 12/19/24 14:48 Reviewed. MDM - URI/Sore Throat MDM Narrative Medical decision making narrative: Discussed physical exam findings. Antibiotic for bacterial sinusitis. Steroid for inflammation. Inhaler for wheezing. Claritin for congestion.Advised supportive measures and signs/symptoms to go to the ER. Pt is appropriate for outpt treatment and follow up. Differential Diagnosis Differential diagnosis: Likely upper respiratory infection, sinusitis (pneumonia), bronchitis and other Imaging Data Radiologist's impression: ITS Impressions Chest X-Ray 12/19/24 15:41 IMPRESSION: No focal infiltrate or effusion. Critical Care Time Critical Care Time Critical Care Time: No Discharge Plan Discharge Clinical Impression: Bacterial sinusitis, Bronchitis Patient Disposition: Home Condition: Stable Instructions: Antibiotic Form, Sinusitis (ED), Acute Bronchitis (ED) Additional Instructions: Take antibiotic as prescribed. Take steroid as prescribed. Use inhaler as prescribed. Recommend Flonase spray and Zyrtec (or Claritin/Briseida) Tylenol every 8 hours as needed for pain Symptomatic treatment includes: rest, fluids, and increase humidity of the air at home. Follow up with your primary care provider in 1 week. Go to the ER for worsening symptoms or concerns. Patient Language: Zimbabwean Prescriptions: New prednisone 20 mg tablet 40 mg PO DAILY 5 Days Qty: 10 0RF loratadine [Claritin] 10 mg tablet 10 mg PO DAILY Qty: 10 0RF albuterol sulfate [Ventolin HFA] 90 mcg/actuation HFA aerosol inhaler 2 puff inhalation QID PRN (Reason: shortness of breath or wheezing) Qty: 6.7 0RF amoxicillin-pot clavulanate 875-125 mg tablet 1 tablet PO Q12H 7 Days Qty: 14 0RF No Action nystatin 100,000 unit/mL suspension 4 ml PO QID 14 Days Qty: 224 0RF Rx Instructions: swish and swallow amlodipine 5 mg tablet 5 mg PO DAILY Qty: 90 2RF Rx Instructions: TAKE 1 TABLET(5 MG) BY MOUTH EVERY DAY indapamide 2.5 mg tablet 2.5 mg PO QAM Qty: 90 2RF Rx Instructions: take 1 tablet by oral route every day in the morning lisinopril 20 mg tablet See Rx Instructions .ROUTE .COMPLEX Qty: 30 5RF Dose Instruction: TAKE 1 TABLET BY MOUTH DAILY Rx Instructions: TAKE 1 TABLET BY MOUTH DAILY metoprolol tartrate 25 mg tablet 50 mg PO BID Qty: 180 1RF gabapentin 100 mg capsule See Rx Instructions .ROUTE .COMPLEX Qty: 120 3RF Rx Instructions: TAKE 1 CAPSULE(100 MG) BY MOUTH in the AM and 3 capsule (300mg) HS; TAKE 1 CAPSULE(100 MG) BY MOUTH in the AM and 3 capsule (300mg) HS simvastatin 20 mg tablet 20 mg PO QPM Qty: 90 3RF Rx Instructions: TAKE 1 TABLET BY ORAL ROUTE EVERY DAY IN THE EVENING Follow-up/Referrals: Vanna Puente MD [Primary Care Provider] - Time of Disposition: 16:19
== END 2024-12-19 16:21 | disposition home or self-care (01) ==
PROVIDERS: PCP Family Medicine
DX: J32.9 Chronic sinusitis, unspecified (principal); J40 Bronchitis, not specified as acute or chronic; Z87.891 Personal history of nicotine dependence; I73.9 Peripheral vascular disease, unspecified; I27.20 Pulmonary hypertension, unspecified; I35.0 Nonrheumatic aortic (valve) stenosis; E78.5 Hyperlipidemia, unspecified; I10 Essential (primary) hypertension; R01.1 Cardiac murmur, unspecified; M51.369 Other intervertebral disc degeneration, lumbar region without mention of lumbar back pain or lower extremity pain; E66.01 Morbid (severe) obesity due to excess calories; Z68.33 Body mass index [BMI] 33.0-33.9, adult; M19.90 Unspecified osteoarthritis, unspecified site; G62.9 Polyneuropathy, unspecified; Z85.72 Personal history of non-Hodgkin lymphomas
CPT/HCPCS: 71046; 99213; G0463